=== PATIENT | female | born 1945 | race Caucasian/White ===

== ENCOUNTER → 2018-11-22 | Outpatient (CLI) | payer MEDICARE ==
[~2018-11-22] MED LIST: BACL10 PO; GABA300 PO; Norco 10-325 T1 EACH PO; Percocet 5-3251 EACH PO
== END | disposition home or self-care (01) ==
LOC: LAB SHORT 14:12 → LAB EV 14:12
DX: L08.9 Local infection of the skin and subcutaneous tissue, unspecified (principal)
CPT/HCPCS: 87070; 87077; 87147; 87186; 87205

== ENCOUNTER 2023-07-25 06:06 | Day surgery (SDC) | payer MEDICARE ==
[~2023-07-25] VITALS: Ht 165.1 cm; Wt 84.0 kg
[2023-07-25] MEDS ORDERED: LATANOPROST2.5 M3 (06:33)
[2023-07-25] MEDS ORDERED: FOSAMAX70 MG PO (06:33)
[2023-07-25] MEDS ORDERED: ERYT.5TO BOTHEYES (06:40)
--- NOTE | 2023-07-25 12:14 | NUR ---
07/25/23 1214 Tiarra Andrea 1207 RECEIVED REPORT FROM [email or web address] SAYS THE SURGICAL SITE IS SWELLING UNDER THE DRESSING. 1200 DR WEAVER ARRIVES TO ROOM TO ASSESS THE SURGICAL SITE.
[2023-07-25 15:03] VITALS: BP 119/60
--- NOTE | 2023-07-25 15:18 | NUR ---
07/25/23 1518 Isaak Hillman PT REPORTED 4/10 PAIN UPON DISCHARGE BUT DESCRIBED PAIN TOLERABLE AND EXPRESSED READINESS TO RETURN HOME. SEE NOTES IN PATIENT ENCOUNTER FOR LIGAMENT REPAIR FOR MORE DETAILS.
== END 2023-07-25 15:15 | disposition home or self-care (01) ==
LOC: ORSCSDS 06:06
PROVIDERS: Orthopaedic Surgery
PROC: 0RQT0ZZ Repair Left Carpometacarpal Joint, Open Approach (ICD-10-PCS; principal; 2023-07-25 07:30)
DX: M18.12 Unilateral primary osteoarthritis of first carpometacarpal joint, left hand (principal); Z79.899 Other long term (current) drug therapy
CPT/HCPCS: A9270; C1713; J0171; J0330; J0690; J1100; J1170; J1885; J2250; J2405; J2704; J2765; J2795; J3010; J7120

== ENCOUNTER 2025-02-18 11:43 | Day surgery (SDC) | payer MEDICARE ==
[~2025-02-18] VITALS: Ht 165.1 cm; Wt 80.5 kg
[~2025-02-18 11:43] MED LIST changes: +ERYT.5TO BOTHEYES; +FOSAMAX70 MG PO; +LATANOPROST2.5 M3; +Lactated Ringer's 1,000 ML IV ONE; +propofoL 50 ML IV ONE
[2025-02-18] MEDS ORDERED: MELO7.5 PO (12:45)
[2025-02-18] MEDS ORDERED: MULVITA (12:46)
[2025-02-18] MEDS ORDERED: TIZANIDINE HCL213 (12:47)
[2025-02-18] MEDS ORDERED: Lactated Ringer's 1,000 ML IV ONE (13:25)
[2025-02-18 14:59] VITALS: BP 117/63
== END 2025-02-18 14:58 | disposition home or self-care (01) ==
LOC: ORSCSDS 11:43
PROVIDERS: Internal Medicine Gastroenterology
PROC: 0DJD8ZZ Inspection of Lower Intestinal Tract, Via Natural or Artificial Opening Endoscopic (ICD-10-PCS; principal; 2025-02-18 13:30)
DX: R10.32 Left lower quadrant pain (principal); R19.4 Change in bowel habit; Z86.0100 Personal history of colon polyps, unspecified; J44.9 Chronic obstructive pulmonary disease, unspecified; K58.9 Irritable bowel syndrome, unspecified; Z80.0 Family history of malignant neoplasm of digestive organs; Z87.891 Personal history of nicotine dependence; Z79.899 Other long term (current) drug therapy
CPT/HCPCS: J2704; J7120